=== PATIENT | male | born 1960 | race Caucasian/White ===

== ENCOUNTER 2021-06-03 12:39 | Outpatient (CLI) | payer MEDICARE, MEDICAID | END 2021-06-03 23:59 | disposition home or self-care (01) | LOC: RAD 12:39 | DX: K21.9 Gastro-esophageal reflux disease without esophagitis (principal); R13.14 Dysphagia, pharyngoesophageal phase | CPT/HCPCS: 74230 ==

== ENCOUNTER 2021-06-26 11:08 | Day surgery (SDC) | payer MEDICARE, MEDICAID ==
[~2021-06-26] VITALS: Ht 170.2 cm; Wt 50.3 kg
[2021-06-26] VITALS (7 sets, daily range): BP systolic 95–129; BP diastolic 50–74
[2021-06-26] MEDS ORDERED: ONDA4TAB6 PO (11:46)
[2021-06-26] MEDS ORDERED: Morphine ER PO (11:46)
[2021-06-26] MEDS ORDERED: METO5TAB85 PO (11:46)
[2021-06-26] MEDS ORDERED: OMEP20TA23 PO (11:46)
[2021-06-26] MEDS ORDERED: OXYC-658 PO (11:46)
[2021-06-26] MEDS ORDERED: albumin 25% 100mL bottle x 1 IV PRN (11:50)
[2021-06-26] MEDS ORDERED: normal saline 1000ml 1,000 ML IV PRN (11:50)
[2021-06-26 12:05] LABS: BASOPHILS % (AUTO) 0.6 % (0-1); EOSINOPHILS % (AUTO) 0.1 % (0-6); HEMOGLOBIN 14.6 g/dl (14.0-17.9); LYMPHOCYTES # (AUTO) 2.1 X10'3 (1.1-4.8); LYMPHOCYTES % (AUTO) 31.2 % (21-51); MEAN CORPUSCULAR HEMOGLOBIN 31.8 PG (27.0-31.0); MEAN CORPUSCULAR HGB CONC 33.8 g/dL (33.0-36.5); MEAN CORPUSCULAR VOLUME 94.1 FL (78-98); MEAN PLATELET VOLUME 9.2 FL (7.4-10.4); MONOCYTES # (AUTO) 0.5 X10'3 (0-0.9); MONOCYTES % (AUTO) 8.1 % (2-12); PLATELET COUNT 246 X10'3 (140-440); RED BLOOD COUNT 4.57 X10'6 (4.70-6.10); WHITE BLOOD COUNT 6.7 X10'3 (4.5-11.0)
[2021-06-26] MEDS ORDERED: fentaNYL/PF 50MCG/1 ML 2ML syringe ONE ×2 (15:28→16:01)
[2021-06-26] MEDS ORDERED: iohexol 300 MG/1 ML 50ml polymer ONE (15:28)
[2021-06-26] MEDS ORDERED: LIDOcaine 1%/PF 5ML 10 MG/ML VIAL ONE ×2 (15:28→16:11)
[2021-06-26] MEDS ORDERED: midazolam 1 mg/ML 2ml injection ONE ×2 (15:28→16:01)
[2021-06-26] MEDS ORDERED: glucagon, human recombinant 1mg kit ONE (15:33)
[2021-06-26] MEDS ORDERED: ondansetron/PF 4mg/2ml inj ONE (16:05)
--- NOTE | 2021-06-26 17:30 | NUR ---
Renae NEW from IR called and said ok for patient to d/c one hour after arrival to floor.
== END 2021-06-26 18:00 | disposition home or self-care (01) ==
LOC: SSTAY O 11:08
PROVIDERS: ATTEND Radiology Vascular & Interventional Radiology
DX: R13.10 Dysphagia, unspecified (principal); K31.89 Other diseases of stomach and duodenum; K22.70 Barrett's esophagus without dysplasia; F17.210 Nicotine dependence, cigarettes, uncomplicated; Z79.899 Other long term (current) drug therapy; Z79.01 Long term (current) use of anticoagulants
CPT/HCPCS: 36415; 49440; 85025; 85610; 99152; 99153; J1610; J2250; J2405; J3010; Q9967

== ENCOUNTER 2022-03-12 07:30 | Inpatient (IN) | payer MEDICARE, MEDICAID ==
[2022-03-11 11:00] LABS: PRE OP PROTIME 10.7 SECONDS (9.0-12.0)
[2022-03-11 11:09] LABS: ALBUMIN 3.8 G/DL (3.4-5.0); ALBUMIN/GLOBULIN RATIO 1.1 (1.1-1.5); ALKALINE PHOSPHATASE 48 IU/L (46-116); BLOOD UREA NITROGEN 18 MG/DL (7-18); BUN/CREATININE RATIO 19.4 (5.4-32.0); CALCIUM 8.9 MG/DL (8.5-10.1); CHLORIDE 102 MMOL/L (99-107); CREATININE 0.93 MG/DL (0.60-1.10); PRE OP ALT 16 U/L (30-65); PRE OP ANION GAP 11 (8-16); PRE OP AST 15 U/L (10-37); PRE OP BILIRUB, TOTAL 0.5 MG/DL (0.0-1.0); PRE OP GLUCOSE 86 MG/DL (70-104); PRE OP POTASSIUM 3.6 MMOL/L (3.4-5.1); PRE OP SODIUM 139 MMOL/L (135-145); TOTAL PROTEIN 7.4 G/DL (6.4-8.2); eGFR 83 ML/MIN
[~2022-03-12] VITALS: Ht 157.5 cm; Wt 63.5 kg
[2022-03-12] MEDS: ringers solution, lacted 1,000 ML IV SCH (05:00)
[~2022-03-12 07:30] MED LIST: ASPI-1071 PO; LYR25C PO; Morphine ER PO; ONDA4TAB6 PO; OXYC-658 PO; PRED10TA23 PO; ROSU5TAB PO; albuterol 2.5 MG/3 ML nebule NEB ONE; ceFAZolin inj. 2,000 MG in dextrose 5%-water 100 ML IV ONE; famotidine 20mg tablet PO ONE; metoprolol tartrate 12.5mg (1/2 tablet) PO ONE; mupirocin 2% nasal ointment 1gm UD NS ONE; nitroPRUSSIDE (NIPRIDE) (200MCG/ML) 100ML Drip IV SCH; phenylephrine inj 50 MG in normal saline 250ml IV solN IV SCH
[2022-03-12] MEDS ORDERED: phenylephrine inj 50 MG in normal saline 250ml IV solN IV PRN (20:28)
[2022-03-13] VITALS (20 sets, daily range): BP systolic 106–170; BP diastolic 46–72
--- NOTE | 2022-03-13 09:00 | NUR ---
pt arrived to floor via wheelchair. pt has a history of a cva with rt sided weakness. He is wheelchair bound as baseline. pt it alert/oriented x4. No s/s of pain or distress. vss are 96% room air, hr 71, bp 147/67, resp 16. An piv was started in the left forearm, 22g. no complaints of pain.
[2022-03-13 09:16] LABS: BASOPHILS % (AUTO) 0.4 % (0-1); EOSINOPHILS % (AUTO) 0 % (0-6); HEMATOCRIT 40.5 % (42.0-52.0); HEMOGLOBIN 13.5 g/dl (14.0-17.9); LYMPHOCYTES # (AUTO) 1.3 X10'3 (1.1-4.8); LYMPHOCYTES % (AUTO) 13.3 % (21-51); MEAN CORPUSCULAR HEMOGLOBIN 30.9 PG (27.0-31.0); MEAN CORPUSCULAR HGB CONC 33.3 g/dL (33.0-36.5); MEAN CORPUSCULAR VOLUME 92.8 FL (78-98); MEAN PLATELET VOLUME 9.6 FL (7.4-10.4); MONOCYTES # (AUTO) 0.4 X10'3 (0-0.9); MONOCYTES % (AUTO) 3.9 % (2-12); NEUTROPHILS # (AUTO) 8.1 X10'3 (1.8-7.7); NEUTROPHILS % (AUTO) 82.4 % (42-75); PLATELET COUNT 238 X10'3 (140-440); RED BLOOD COUNT 4.36 X10'6 (4.70-6.10); RED CELL DISTRIBUTION WIDTH 14.2 % (11.5-14.5); WHITE BLOOD COUNT 9.8 X10'3 (4.5-11.0)
[2022-03-13] MEDS ORDERED: heparin 10,000 units/1 ML INJ ONE (10:53)
[2022-03-13] MEDS ORDERED: ceFAZolin 1000mg inj ONE ×3 (10:53→12:10)
[2022-03-13] MEDS ORDERED: protamine sulfate 10mg/ml inj. ONE (10:53)
[2022-03-13] MEDS ORDERED: fentaNYL/PF 50MCG/1 ML 2ML syringe ONE (11:50)
[2022-03-13] MEDS ORDERED: midazolam 1 mg/ML 2ml injection ONE (11:51)
[2022-03-13] MEDS ORDERED: LIDOcaine 1% (10mg/ml) 2ml vial ONE (11:53)
[2022-03-13] MEDS ORDERED: rocuronium 10mg/ml inj IV ONE (12:26)
[2022-03-13] MEDS ORDERED: propofol inj 20 ML IV ONE (12:26)
[2022-03-13] MEDS ORDERED: heparin 1,000unit/ml 10ml vial 10 ML ONE (12:27)
[2022-03-13] MEDS ORDERED: dexamethasone sod phosphate 4mg/ml inj. ONE (12:27)
[2022-03-13] MEDS ORDERED: metoclopramide 5 mg/ml inj IV PRN (13:30)
[2022-03-13] MEDS ORDERED: ondansetron/PF 4mg/2ml inj IV PRN ×2 (13:30→13:50)
[2022-03-13] MEDS ORDERED: morphine 2 MG/ML inj. syringe IV PRN ×2 (13:30→13:50)
[2022-03-13] MEDS ORDERED: HYDROcodone/acetaminophen 7.5MG/325MG per 15ml UD CUP PEG PRN (13:30)
--- NOTE | 2022-03-13 13:40 | NUR ---
PT ARRIVED TO CICU BED [address] REYES, ANESTHESIA REPORT GIVEN, PT AWAKE AND ALERT C/O PAIN IN LEFT NECK- GIVEN SOME PAIN MEDICATION BY DR REYES. PT DOES HAVE HX OF CHRONIC BACK PAIN AND TAKES HIGH DOSES OF OPIOIDS AT HOME, VSS, NEURO CHECKS INTACT-PT HAS HX OF RIGHT SIDED WEAKNESS FROM PREVIOUS STROKE-NO CHANGES NOTED. SCDS ON, PIV 22G IN LEFT HAND, ART LINE R WRIST, CARDIAC DRIPS PRESENT TO ASSIST WITH KEEPING SBP >150.
[2022-03-13] MEDS ORDERED: meperidine/PF 25mg/ml syringe IV PRN ×3 (13:50)
[2022-03-13] MEDS ORDERED: morphine 4 MG/ML inj SYRINge IV PRN (13:50)
[2022-03-13] MEDS ORDERED: ringers solution, lacted 1,000 ML IV SCH (13:50)
[2022-03-13] MEDS ORDERED: proCHLORperazine 10 MG/2 ml inj IV PRN (13:50)
[2022-03-13] MEDS ORDERED: nitroPRUSSIDE (NIPRIDE) (200MCG/ML) 100ML Drip IV SCH (14:30)
[2022-03-13] MEDS ORDERED: phenylephrine inj 50 MG in normal saline 250ml IV solN IV PRN (14:30)
--- NOTE | 2022-03-13 14:42 | NUR ---
NO CHANGES IN NEURO STATUS, STILL CHASING PAIN IN LEFT NECK, VSS, NIPRIDE CURRENTLY BEING USED FOR KEEPING SBP <150
--- NOTE | 2022-03-13 15:00 | NUR ---
PT HAS BARRETTS ESOPHAGUS, HAS G-TUBE FOR FEEDING, ABLE TO TOLERATE FLUIDS THOUGH, OBTAINED ORDER FOR FONDANT MACHINE OPERATOR CONSULT TO START TUBE FEED
--- NOTE | 2022-03-13 15:20 | NUR ---
PT DOING WELL, NO CHANGES IN NEURO CHECKS, PAIN BETTER-PT LIVES AT 7/10 CHRONIC PAIN, VSS-DRIPS STOPPED AT THIS TIME, DRSG TO LEFT NECK-NO CHANGES, THERESA PRESENT-EMPTIED 20CC RED DRAINAGE, CODING MANAGER - DANICA GIVEN REPORT ALONG WITH ICU CHARGE, ALL QUESTIONS ANSWERED. WALLPAPER CONSULTANT PAGED FOR CONSULT-PT ENCOURAGED TO GET DANIELA ATTACHMENT FROM HOME TO ASSIST WITH PROPER FEEDING. NO CHANGES FORM PRIOR ASSESSMENT.
--- NOTE | 2022-03-13 16:00 | NUR ---
Message sent to dietary regarding patients tubefeed. Pt does not eat food PO due to swallowing issues. Pt has a PEG tube that he uses at home for his tubefeed.
[2022-03-13] MEDS: ceFAZolin inj. 1,000 MG in dextrose 5%-water 50ml 50 ML IV SCH (16:51)
[2022-03-13] MEDS: nicotine 14mg patch - 24hr TD SCH (17:38)
--- NOTE | 2022-03-13 18:30 | NUR ---
Patient in room CICU 2012. I have received report from Kelsi and had the opportunity to ask questions and assume patient care.
--- NOTE | 2022-03-13 19:05 | NUR ---
Patient c/o neck pain 8/10 despite Hydrocodone 7.5mg. Morphine 4 mg IV given for breakthrough pain.
[2022-03-13] MEDS: morphine 4 MG/ML inj SYRINge IV PRN (19:13)
[2022-03-13] MEDS: docusate sodium 100mg/10ml UD cup PO SCH (19:54)
[2022-03-13] MEDS: gabapentin 300mg capsule GT SCH (19:55)
[2022-03-13] MEDS: pregabalin 25mg capsule PO SCH (19:55)
--- NOTE | 2022-03-13 20:50 | NUR ---
Called Dr. Bennett. Patient states he takes Oxycodone 10 mg Q 8 hours at home and is requesting an order for this instead of [place] 7.5 mg Q 4 hours. Order received to discontinue [place] 7.[address] order for Oxycodone 10 mg PO Q 8 hours.
[2022-03-13] MEDS: oxyCODONE IR 5mg (immed. release) tablet PO PRN (21:03)
[2022-03-14] VITALS (11 sets, daily range): BP systolic 97–127; BP diastolic 44–54
[2022-03-14] MEDS: ceFAZolin inj. 1,000 MG in dextrose 5%-water 50ml 50 ML IV SCH (00:34)
[2022-03-14] MEDS: ringers solution, lacted 1,000 ML IV SCH (02:34)
[2022-03-14] MEDS: oxyCODONE IR 5mg (immed. release) tablet PO PRN (05:22)
--- NOTE | 2022-03-14 06:32 | NUR ---
Problems reprioritized. Patient report given, questions answered & plan of care reviewed with Pushpa.
--- NOTE | 2022-03-14 07:19 | NUR ---
TF consult: Pending physician documentation at this time, pt is s/p endarterectomy per EMR. RN states that pt has PEG and uses that for sole nutrition, okay to begin TF at this time. See recs below. LBM 03/13 receiving routine colace. Will continue to monitor and adjust needs as appropriate. Recs: 1) Continuous TF using Jevity 1.2 at 50ml/hr to provide 1200ml volume, 1440kcals, 67g protein, 968ml free water 2) Additional water flush 100ml Q4H; monitor serum Na 3) PALB Q / 4) Daily wts 5) Routine bowel care Addendum: 03/14/22 at [address] Amended: Links added.
[2022-03-14 07:46] LABS: BASOPHILS % (AUTO) 0.2 % (0-1); EOSINOPHILS % (AUTO) 0.1 % (0-6); HEMATOCRIT 36.7 % (42.0-52.0); HEMOGLOBIN 12.3 g/dl (14.0-17.9); LYMPHOCYTES # (AUTO) 2.5 X10'3 (1.1-4.8); MEAN CORPUSCULAR HEMOGLOBIN 30.9 PG (27.0-31.0); MEAN CORPUSCULAR HGB CONC 33.5 g/dL (33.0-36.5); MEAN CORPUSCULAR VOLUME 92.2 FL (78-98); MEAN PLATELET VOLUME 9.7 FL (7.4-10.4); MONOCYTES % (AUTO) 9.1 % (2-12); NEUTROPHILS # (AUTO) 7.6 X10'3 (1.8-7.7); NEUTROPHILS % (AUTO) 68.6 % (42-75); PLATELET COUNT 232 X10'3 (140-440); RED BLOOD COUNT 3.98 X10'6 (4.70-6.10); RED CELL DISTRIBUTION WIDTH 13.9 % (11.5-14.5); WHITE BLOOD COUNT 11.1 X10'3 (4.5-11.0)
[2022-03-14 07:49] LABS: ALANINE AMINOTRANSFERASE 13 U/L (12-78); ALBUMIN 2.8 G/DL (3.4-5.0); ALBUMIN/GLOBULIN RATIO 0.9 (1.1-1.5); ALKALINE PHOSPHATASE 39 IU/L (46-116); ANION GAP 7 (8-16); ASPARTATE AMINO TRANSFERASE 17 U/L (10-37); BILIRUBIN,TOTAL 0.5 MG/DL (0.1-1.0); BLOOD UREA NITROGEN 18 MG/DL (7-18); BUN/CREATININE RATIO 19.1 (5.4-32.0); CHLORIDE 107 MMOL/L (99-107); CREATININE 0.94 MG/DL (0.60-1.10); GLUCOSE 100 MG/DL (70-104); SODIUM 142 MMOL/L (135-145); TOTAL CARBON DIOXIDE 28.2 MMOL/L (24-32); TOTAL PROTEIN 5.9 G/DL (6.4-8.2); eGFR 82 ML/MIN
[2022-03-14] MEDS: docusate sodium 100mg/10ml UD cup PO SCH (07:52)
[2022-03-14] MEDS: gabapentin 300mg capsule GT SCH (07:52)
[2022-03-14] MEDS: nicotine 14mg patch - 24hr TD SCH (07:53)
[2022-03-14] MEDS: pregabalin 25mg capsule PO SCH (07:53)
[2022-03-14] MEDS ORDERED: CLOP75TA34 PO (07:55)
[2022-03-14] MEDS: morphine 4 MG/ML inj SYRINge IV PRN (07:56)
[2022-03-14] MEDS ORDERED: prednisone 10mg tablet PO SCH (08:00)
[2022-03-14] MEDS ORDERED: atorvastatin 20mg tablet PO SCH (08:00)
[2022-03-14] MEDS ORDERED: clopidogrel 75mg tablet PO SCH (08:00)
[2022-03-14] MEDS ORDERED: aspirin 81mg, enteric-coated 1 TAB TABLET.DR PO SCH (08:00)
--- NOTE | 2022-03-14 08:34 | NUR ---
Pt. has discharge orders. Pt. wants to hold off on tube feeds until he gets home.
--- NOTE | 2022-03-14 10:12 | NUR ---
Jean Babb in earlier this am to delia CARDENAS drain. Dressing applied to drain site.
[2022-03-14] MEDS ORDERED: pregabalin 25mg capsule PEG SCH (11:18)
[2022-03-14] MEDS ORDERED: docusate sodium 100mg/10ml UD cup PEG SCH (11:19)
[2022-03-14] MEDS ORDERED: prednisone 10mg tablet GT SCH (11:19)
[2022-03-14] MEDS ORDERED: gabapentin 300mg capsule PEG SCH (11:19)
[2022-03-14] MEDS ORDERED: atorvastatin 20mg tablet PEG SCH (11:20)
[2022-03-14] MEDS ORDERED: clopidogrel 75mg tablet PEG SCH (11:20)
[2022-03-14] MEDS ORDERED: aspirin 81mg tab.chew PEG SCH (11:20)
[2022-03-14] MEDS ORDERED: oxyCODONE IR 5mg (immed. release) tablet PEG PRN (11:20)
--- NOTE | 2022-03-14 11:26 | NUR ---
Pt. dc'd to care of dtr. in stable condition with all belongings.
--- NOTE | 2022-03-24 15:26 | NUR ---
Case Management DC follow up:Spoke with Patient via telephone.S/P; Patient Reports: Denies: Acute/continuous chest pain,emergent SOB, resp distress,dyspnea,nausea/vomiting, weakness, vertigo,syncope episodes, headache,blurry vision s/s of stroke/BE-Fast, dysphagia,dysuria,hematuria,hematochezia, melena,unexplained bruising, bleeding, fever chills. Denies redness , drainage,warmth to touch at incision site.Verbalizes understanding that warrant 9-11/ER visit for further evaluation.Verbalizes understanding of new Rx:, why prescribed; continues/resumes current RX as per order.Verbalizes compliance with aftercare.Verbalizes he has seen Dr. Garsia, scheduled follow up with Dr. Bennett 03/30/22, fu with PCP in May.Verbalizes the staff were great, everyone did a great job.Needs met,questions/concerns addressed at DC.No further questions/concerns regarding recent hospital stay and /or DC status at this time.
== END 2022-03-14 11:23 | disposition home or self-care (01) | DRG 37 ==
LOC: UNDOADMIN 03-13 06:45 → PAS IN 03-13 06:45 → PCU 3S 03-13 06:56 → PAS IN 03-13 06:56 → CICU 2S 03-13 14:02 → PCU 3S 03-13 14:02 → UNDODISIN 03-14 11:23
PROVIDERS: ADMIT Thoracic Surgery (Cardiothoracic Vascular Surgery); ATTEND Thoracic Surgery (Cardiothoracic Vascular Surgery)
PROC: 03UL0KZ Supplement Left Internal Carotid Artery with Nonautologous Tissue Substitute, Open Approach (ICD-10-PCS; 2022-03-13)
PROC: 03CL0ZZ Extirpation of Matter from Left Internal Carotid Artery, Open Approach (ICD-10-PCS; principal; 2022-03-13 11:51)
DX: I65.22 Occlusion and stenosis of left carotid artery (principal); R53.2 Functional quadriplegia; Z86.73 Personal history of transient ischemic attack (TIA), and cerebral infarction without residual deficits; Z99.3 Dependence on wheelchair
CPT/HCPCS: 36415; 71046; 80053; 85025; 85610; 85730; 86885; 86900; 86901; 87081; 87635; 88300; 88305; 93005; 93306; A4618; A6250; A6258; A6402; A7000; C1768; G0378; J0690; J1100; J1644; J2175; J2250; J2270; J2370; J2405; J2704; J2720; J2765; J3010; J3490; J7050; J7060; J7120; J7512

== ENCOUNTER 2022-03-31 06:44 | Day surgery (SDC) | payer MEDICARE, MEDICAID ==
[2022-03-25 10:00] LABS: CLARITY,URINE CLEAR (Clear); COLOR,URINE YELLOW (Yellow); GLUCOSE, URINE NEGATIVE (Neg); KETONES,URINE NEGATIVE (Neg); LEUKOCYTE ESTERASE ,URINE TRACE (Neg); NITRITES, URINE NEGATIVE (Neg); OCCULT BLOOD,URINE NEGATIVE (Neg); PROTEIN,URINE NEGATIVE (Neg); UROBILINOGEN,URINE 0.2 E.U/dL (0.2-1.0)
[2022-03-25 10:01] LABS: BASOPHILS # (AUTO) 0.1 X10'3 (0-0.2); BASOPHILS % (AUTO) 0.6 % (0-1); EOSINOPHILS % (AUTO) 0 % (0-6); LYMPHOCYTES # (AUTO) 1.3 X10'3 (1.1-4.8); LYMPHOCYTES % (AUTO) 14.2 % (21-51); MEAN CORPUSCULAR HEMOGLOBIN 31.8 PG (27.0-31.0); MEAN CORPUSCULAR HGB CONC 34.2 g/dL (33.0-36.5); MEAN CORPUSCULAR VOLUME 92.9 FL (78-98); MEAN PLATELET VOLUME 9.1 FL (7.4-10.4); MONOCYTES # (AUTO) 0.4 X10'3 (0-0.9); NEUTROPHILS # (AUTO) 7.6 X10'3 (1.8-7.7); NEUTROPHILS % (AUTO) 81.2 % (42-75); PRE OP HEMATOCRIT 39.2 % (42.0-52.0); PRE OP HEMOGLOBIN 13.4 g/dL (14.0-17.9); PRE OP PLATELET COUNT 264 X10'3 (140-440); RED BLOOD COUNT 4.22 X10'6 (4.70-6.10); RED CELL DISTRIBUTION WIDTH 14.2 % (11.5-14.5)
[2022-03-25 10:08] LABS: UA COLLECTION TYPE CLN CATCH MIDSTREAM
[2022-03-25 10:10] LABS: BACTERIA,URINE 4+ /HPF (Neg); MUCUS STRANDS NONE SEEN /LPF (Neg); RBC,URINE NONE SEEN /HPF (0-2); SQUAMOUS EPITHELIAL CELL,UR FEW /LPF (FEW); WBC,URINE 0-4 /HPF (0-4)
[2022-03-25 10:13] LABS: ALBUMIN 3.6 G/DL (3.4-5.0); ALBUMIN/GLOBULIN RATIO 0.9 (1.1-1.5); ALKALINE PHOSPHATASE 49 IU/L (46-116); BLOOD UREA NITROGEN 18 MG/DL (7-18); BUN/CREATININE RATIO 21.4 (5.4-32.0); CALCIUM 8.9 MG/DL (8.5-10.1); CHLORIDE 102 MMOL/L (99-107); CREATININE 0.84 MG/DL (0.60-1.10); PRE OP ALT 16 U/L (30-65); PRE OP ANION GAP 9 (8-16); PRE OP AST 16 U/L (10-37); PRE OP BILIRUB, TOTAL 0.3 MG/DL (0.0-1.0); PRE OP GLUCOSE 120 MG/DL (70-104); PRE OP POTASSIUM 4.2 MMOL/L (3.4-5.1); PRE OP SODIUM 138 MMOL/L (135-145); TOTAL CARBON DIOXIDE 27.3 MMOL/L (24-32); TOTAL PROTEIN 7.4 G/DL (6.4-8.2); eGFR > 90 ML/MIN
[2022-03-31] VITALS (8 sets, daily range): BP systolic 98–131; BP diastolic 57–68
[~2022-03-31] VITALS: Ht 170.2 cm; Wt 61.4 kg
[~2022-03-31 06:44] MED LIST changes: +CLOP75TA34 PO; -metoprolol tartrate 12.5mg (1/2 tablet) PO ONE; -mupirocin 2% nasal ointment 1gm UD NS ONE; -nitroPRUSSIDE (NIPRIDE) (200MCG/ML) 100ML Drip IV SCH; -phenylephrine inj 50 MG in normal saline 250ml IV solN IV SCH; +ringers solution, lacted 1,000 ML IV SCH
[2022-03-31] MEDS ORDERED: BUPIVAcaine/PF 2.5mg/ml (0.25%) 10ml vial ONE (07:31)
[2022-03-31] MEDS ORDERED: LIDOcaine 1% W/epiNEPHrine 1:100,000 20ml vial ONE (07:31)
[2022-03-31] MEDS ORDERED: ringers solution, lacted 1,000 ML IV SCH (08:50)
[2022-03-31] MEDS ORDERED: morphine 4 MG/ML inj SYRINge IV PRN (08:50)
[2022-03-31] MEDS ORDERED: acetaminophen 1,000mg/100ml IV 100 ML IV PRN (08:50)
[2022-03-31] MEDS ORDERED: labetalol 20mg/4ml (5mg/ml) syringe IV PRN (08:50)
[2022-03-31] MEDS ORDERED: hydrALAZINE 20mg/ml inj. IV PRN (08:50)
[2022-03-31] MEDS ORDERED: proCHLORperazine 10 MG/2 ml inj IV PRN (08:50)
[2022-03-31] MEDS ORDERED: ondansetron/PF 4mg/2ml inj IV PRN (08:50)
[2022-03-31] MEDS ORDERED: morphine 2 MG/ML inj. syringe IV PRN (08:50)
[2022-03-31] MEDS ORDERED: meperidine/PF 25mg/ml syringe IV PRN ×3 (08:50)
[2022-03-31] MEDS ORDERED: fentaNYL /PF 50mcg/ml 5ml ampule ONE (08:52)
[2022-03-31] MEDS ORDERED: midazolam 1 mg/ML 2ml injection ONE (08:52)
[2022-03-31] MEDS ORDERED: propofol inj 20 ML IV ONE ×4 (09:02→09:23)
--- NOTE | 2022-03-31 09:31 | NUR ---
Received from OR via LISA , accompanied by Anesthesiologist: DR CARRILLO and report given by Anesthesiolgist. VVS. CHRISTINE RESPONDS TO STIMULI BUT RESTING. INCISION ON LEFT TEMPORAL WITH DERMA CONDON. CAME IN WITH A J PEG ON LATERAL LEFT ABDOMEN. NASAL CANNULA 2 LIERS AT 99-100%. 20G IN THE LEFT HAND. Addendum: 03/31/22 at 0941 by Caroline Ledbetter RN Amended: Links added.
--- NOTE | 2022-03-31 10:41 | NUR ---
PATIENT MEETS DISCHARGE CRITERIA. VSS. IV DC'D WITH NO COMPLICATIONS. ALL PATIENT'S BELONGINGS INCLUDING. WALLET, GLASSES, CIGARETTES, CHECK VIEWER, AND PHONE AND WHEELCHAIR WENT HOME WITH PATIENT.
== END 2022-03-31 15:13 | disposition home or self-care (01) ==
LOC: PAS 06:44
PROVIDERS: ATTEND Surgery
DX: G44.1 Vascular headache, not elsewhere classified (principal); M31.6 Other giant cell arteritis; K31.84 Gastroparesis; E78.5 Hyperlipidemia, unspecified; J43.9 Emphysema, unspecified; F17.210 Nicotine dependence, cigarettes, uncomplicated; Z86.73 Personal history of transient ischemic attack (TIA), and cerebral infarction without residual deficits; Z98.1 Arthrodesis status; Z98.890 Other specified postprocedural states; Z79.899 Other long term (current) drug therapy
CPT/HCPCS: 36415; 37609; 80053; 81001; 82948; 85025; 87077; 87088; 87186; J0131; J0690; J2175; J2250; J2270; J2704; J3010; J3490; J7060; J7120; Z7506; Z7512; 88305; 88313; A4215; A4618; A6258; A7000